=== PATIENT | male | born 1980 | race Caucasian/White ===

== ENCOUNTER 2021-01-14 19:09 | Inpatient (IN) | payer MEDICARE, MEDICAID ==
[~2021-01-14] VITALS: Ht 152.4 cm; Wt 58.6 kg
[~2021-01-14 19:09] MED LIST: CITA-311 PO; KEP500T PO; LORA0.5T PO; OLAN5TAB5 PO
[2021-01-14 19:52] LABS: BASOPHILS # (AUTO) 0.1 X10'3 (0-0.2); BASOPHILS % (AUTO) 1.1 % (0-1); EOSINOPHILS # (AUTO) 0.2 X10'3 (0-0.9); EOSINOPHILS % (AUTO) 2.2 % (0-6); HEMATOCRIT 48.5 % (42.0-52.0); HEMOGLOBIN 16.4 g/dl (14.0-17.9); LYMPHOCYTES # (AUTO) 1.9 X10'3 (1.1-4.8); MEAN CORPUSCULAR HEMOGLOBIN 31.9 PG (27.0-31.0); MEAN CORPUSCULAR HGB CONC 33.9 g/dL (33.0-36.5); MEAN CORPUSCULAR VOLUME 94.2 FL (78-98); MEAN PLATELET VOLUME 10.5 FL (7.4-10.4); MONOCYTES # (AUTO) 1.2 X10'3 (0-0.9); MONOCYTES % (AUTO) 12.5 % (2-12); NEUTROPHILS # (AUTO) 6.3 X10'3 (1.8-7.7); NEUTROPHILS % (AUTO) 64.2 % (42-75); PLATELET COUNT 234 X10'3 (140-440); RED BLOOD COUNT 5.14 X10'6 (4.70-6.10); RED CELL DISTRIBUTION WIDTH 12.9 % (11.5-14.5); WHITE BLOOD COUNT 9.7 X10'3 (4.5-11.0)
[2021-01-14 20:03] LABS: URINE AMPHETAMINE SCREEN NEGATIVE (Neg); URINE BARBITUATE SCREEN NEGATIVE (Neg); URINE BENZODIAZEPINES SCREEN NEGATIVE (Neg); URINE CANNABINOID SCREEN NEGATIVE (Neg); URINE COCAINE SCREEN NEGATIVE (Neg); URINE METHADONE SCREEN NEGATIVE (Neg); URINE OPIATE SCREEN NEGATIVE (Neg); URINE PHENCYCLIDINE SCREEN NEGATIVE (Neg)
[2021-01-14 20:05] LABS: ALANINE AMINOTRANSFERASE 27 U/L (12-78); ALBUMIN 3.7 G/DL (3.4-5.0); ALKALINE PHOSPHATASE 87 IU/L (46-116); ANION GAP 12 (8-16); ASPARTATE AMINO TRANSFERASE 10 U/L (10-37); BILIRUBIN,TOTAL 0.6 MG/DL (0.1-1.0); BLOOD UREA NITROGEN 13 MG/DL (7-18); BUN/CREATININE RATIO 15.5 (5.4-32.0); CALCIUM 8.8 MG/DL (8.5-10.1); CHLORIDE 108 MMOL/L (99-107); CREATININE 0.84 MG/DL (0.60-1.10); GLUCOSE 117 MG/DL (70-104); POTASSIUM 3.6 MMOL/L (3.5-5.1); SODIUM 143 MMOL/L (135-145); TOTAL CARBON DIOXIDE 23.4 MMOL/L (24-32); TOTAL PROTEIN 7.3 G/DL (6.4-8.2); eGFR > 90 ML/MIN
[2021-01-14] MEDS ORDERED: PALI1.5T PO (20:24)
[2021-01-14] MEDS ORDERED: PALI6TAB6 PO (20:26)
[2021-01-14 20:35] LABS: CLARITY,URINE CLEAR (Clear); COLOR,URINE YELLOW (Yellow); GLUCOSE, URINE NEGATIVE (Neg); KETONES,URINE NEGATIVE (Neg); LEUKOCYTE ESTERASE ,URINE NEGATIVE (Neg); NITRITES, URINE NEGATIVE (Neg); OCCULT BLOOD,URINE MODERATE (Neg); PROTEIN,URINE NEGATIVE (Neg)
[2021-01-14 20:40] LABS: UA COLLECTION TYPE CLN CATCH MIDSTREAM
[2021-01-14 20:41] LABS: BACTERIA,URINE NONE SEEN /HPF (Neg); SQUAMOUS EPITHELIAL CELL,UR FEW /LPF (FEW); WBC,URINE 0-4 /HPF (0-4)
[2021-01-14 20:42] LABS: MUCUS STRANDS FEW /LPF (Neg)
--- NOTE | 2021-01-14 23:28 | NUR ---
PT RESTING W/ EYES CLOSED. SHOWS NO S/S OF ACUTE DISTRESS.
--- NOTE | 2021-01-15 01:11 | NUR ---
PT SLEEPING IN SUPINE POSITION. SHOWS NO S/S OF ACUTE DISTRESS.
--- NOTE | 2021-01-15 02:13 | NUR ---
PT DENIES DISCOMFORT, HAS NO REQUESTS. SLEEPING W/O COMPLAINTS
--- NOTE | 2021-01-15 03:06 | NUR ---
PT RESTING IN BED W/ BLANKET. RESPIRATIONS ARE EVEN AND UNLABORED
--- NOTE | 2021-01-15 04:24 | NUR ---
PT SHOWS NO S/S OF DISTRESS, RESTING W/O COMPLAINT
--- NOTE | 2021-01-15 05:57 | NUR ---
PT RESTING W/O COMPLAINTS. RESPIRATIONS EVEN AND UNLABORED
[2021-01-15] MEDS ORDERED: LORazepam 0.5 MG tablet PO PRN (06:20)
--- NOTE | 2021-01-15 06:54 | NUR ---
patient moved to bed 21.
[2021-01-15] MEDS: levetiracetam 250mg tablet PO SCH ×2 (08:15→21:06)
--- NOTE | 2021-01-15 09:28 | NUR ---
Still reports he wants to walk on the street in front of cars, denies HI. Repors hx of OD, nomreported visual or auditory hallunication. Reports he doesn't have family or friends in [place] and that he used to live in [place].Still waiting for [facility] mental health to eval patient.
--- NOTE | 2021-01-15 11:37 | NUR ---
patient on right bustillo position, respirations regular.
--- NOTE | 2021-01-15 14:00 | NUR ---
[facility] SW at bedside.
--- NOTE | 2021-01-15 15:18 | NUR ---
Assumed care of patient, pt. continues to sleep at this time, laying on left side.
--- NOTE | 2021-01-15 16:38 | NUR ---
Pt. continues to sleep at this time, laying on his left side, rr even and unlabored.
--- NOTE | 2021-01-15 17:26 | NUR ---
Pt. continues to sleep, laying on his rt. side at this time, rr even and unlabored.
[2021-01-15] MEDS: lactose-reduced food (Ensure High Protein) 237ml bottle PO SCH (18:09)
--- NOTE | 2021-01-15 19:00 | NUR ---
Received pt laying in bed, awake. Pt cooperative with product development engineer.
--- NOTE | 2021-01-15 21:00 | NUR ---
Pt laying awake in bed talking on the phone with a friend. Pt up to bathroom x 1.
[2021-01-15] MEDS: PALIPERIDONE 3 MG TAB.ER.24 PO SCH (21:05)
--- NOTE | 2021-01-15 23:00 | NUR ---
Pt asleep by 2200. Pt lying peacefully without signs of distress.
--- NOTE | 2021-01-16 01:00 | NUR ---
Pt continues sleeping without signs of distress.
--- NOTE | 2021-01-16 03:00 | NUR ---
Pt remains asleep without signs of distress.
--- NOTE | 2021-01-16 05:00 | NUR ---
Pt up to the bathroom, then returned to bed without complaints.
--- NOTE | 2021-01-16 07:54 | NUR ---
Pt sleeping, resp unlabored
[2021-01-16] MEDS: levetiracetam 250mg tablet PO SCH ×2 (08:05→20:25)
[2021-01-16] MEDS: lactose-reduced food (Ensure High Protein) 237ml bottle PO SCH ×3 (08:06→18:00)
--- NOTE | 2021-01-16 10:52 | NUR ---
Pt up to bathroom with walker. Back to bed
--- NOTE | 2021-01-16 13:46 | NUR ---
Pt ate lunch,. Talked to family on the phone, back to sleep
--- NOTE | 2021-01-16 17:06 | NUR ---
Pt family called, pt talking on the phone with them
--- NOTE | 2021-01-16 18:47 | NUR ---
Patient is awake and well oriented. He is finishing dinner. No distress.
--- NOTE | 2021-01-16 19:47 | NUR ---
Patient describes S/I without a plan. Patient is polite and cooperative. Patient describes recent problems with sleep. This mortgage or loan underwriter will request a Trasadone order for patient.
[2021-01-16] MEDS: PALIPERIDONE 3 MG TAB.ER.24 PO SCH (20:25)
[2021-01-16] MEDS ORDERED: traZODone 50mg tablet PO SCH (20:55)
[2021-01-16] MEDS ORDERED: traZODone 50mg tablet PO PRN (21:01)
--- NOTE | 2021-01-16 21:13 | NUR ---
Patient sleeping quietly in bed. In view from the nurses station.
--- NOTE | 2021-01-16 22:03 | NUR ---
Patient sleeps quietly in a mid fowlers position.
--- NOTE | 2021-01-17 01:02 | NUR ---
Patients bed is in low fowlers position, he is sleeping on his right side. No distress.
--- NOTE | 2021-01-17 04:09 | NUR ---
Patient is sleeping quietly on his left side. No S/S of any distress. Patient self re-positions in bed.
--- NOTE | 2021-01-17 06:54 | NUR ---
Assumed care of patient. Appears to be sleeping, respirations even and unlabored.
[2021-01-17] MEDS: lactose-reduced food (Ensure High Protein) 237ml bottle PO SCH ×3 (08:19→18:12)
[2021-01-17] MEDS: levetiracetam 250mg tablet PO SCH ×2 (08:22→20:15)
--- NOTE | 2021-01-17 08:55 | NUR ---
Pt awake sitting on side bed finishing his breakfast. Pt was compliant with medications and 1:1 assessment. Pt answers questions minimally. Pt states "I am depressed." When asked about suicidal thoughts pt states "I don't know." "I am depressed." Pt endorses A/VH, but "not all the time." Pt had a urinal next to bed and when asked if he could use the bathroom pt stated "the door is to heavy and I might fall." Virologist explained that staff would assist him and encouraged him to ambulate. Addendum: 01/17/21 at 1017 by KELLY Pt reports one SA by overdosing with pills, unsure of how long ago. Pt states he recently moved back to [place] from [place], has no support system here.
--- NOTE | 2021-01-17 10:59 | NUR ---
Pt appears to be sleeping, respirations even and unlabored.
--- NOTE | 2021-01-17 12:09 | NUR ---
Pt on phone with a friend talking appropriately.
--- NOTE | 2021-01-17 13:15 | NUR ---
Pt was discharged to [facility] at 1310. Pt was escorted to unit by PCT and security. Pt left with all personal belongings and original 5150 was given to staff. Pt was happy about going "upstairs." Pt was A&Ox4.
--- NOTE | 2021-01-17 13:15 | NUR ---
ADMIT NOTE: Pt admitted from [facility] on a 5150 DTS. Per pt report he is from [place]. In [place] he lived with his adoptive family. Pt states, "they don't want me to live there anymore." He told this teletypewriter installer, "I was driven by a friend to [place] and dropped off." He talked about having lived in motels and now at the [facility]. He states, "I am scared living there they take my belongings and have tried to take my EBT card." Pt is developmentally delayed. He reported SI and plans "when I feel scared at the mission." Belongings inventoried and put in a locker per STEVEN Elizabeth. He is a non-smoker. tPt reports seizures and is on Keppra
[2021-01-17] MEDS ORDERED: loperamide 2mg capsule PO PRN (13:25)
[2021-01-17] MEDS ORDERED: mag hydrox/Alum hydrox/simeth 30ml oral suspension PO PRN (13:25)
[2021-01-17] MEDS ORDERED: NICOTINE POLACRILEX 2 MG LOZENGE BC PRN (13:25)
[2021-01-17] MEDS ORDERED: acetaminophen 325mg tablet PO PRN (13:25)
[2021-01-17] MEDS ORDERED: magnesium hydroxide 30ml (MOM) UD suspension PO PRN (13:25)
[2021-01-17] MEDS: acetaminophen 325mg tablet PO PRN (18:22)
[2021-01-17 19:12] VITALS: BP 118/73
[2021-01-17] MEDS: PALIPERIDONE 3 MG TAB.ER.24 PO SCH (20:14)
[2021-01-17] MEDS: traZODone 50mg tablet PO SCH (20:15)
--- NOTE | 2021-01-18 00:36 | NUR ---
Nursing Progress Note:[] Legal hold:[] Client on voluntary/involuntary status for GD/DTS/DTO[]. Report received from nurse with use of SBAR[]. Why are they here: Pt [facility] on a 5150 DTS. Per pt report he is from [place]. In [place] he lived with his adoptive family. Pt states, "they don't want me to live there anymore." He told this telegraphic typewriter operator, "I was driven by a friend to [place] and dropped off." He talked about having lived in motels and now at the [facility]. He states, "I am scared living there they take my belongings and have tried to take my EBT card." Pt is developmentally delayed. He reported SI and plans "when I feel scared at the mission." Belongings inventoried and put in a locker per STEVEN Elizabeth. He is a non-smoker. Pt reports seizures and is on Kera Assessment What has happened this shift: Patient was up on the unit walking and hanging around his room. Pt was concerned about his room mate responding to internal stimuli loudly. Pt was reminded that he is safe on the unit. Pt ate snack in group room with some peers and watched tv. He was med compliant He went to bed after reading the Bible with a peer. S/I, H/I:denies except when scared about living situation. A/VH: denies Sleep:See sleep assessment ADL's:independent Group attendance:none Were meds taken:yes Any med S/E none Mental Status Exam Appearance:dressed in green scrubs Eye contact:good Behavior: Cooperative Speech: Audible slow to respond Mood: Guarded Affect: Blunted Thought process: Poverty of speech and content Thought Content: worried about room mate Cognition: A&O X3 Insight: Fair Judgment: Fair Interventions PRN's used: Trazodone Therapeutic interventions: Provided 1:1 assessment with therapeutic communication; medication administration/education/monitoring, provided direction and encouragement as needed, encouraged participation on the unit, and maintained Q 15min safety checks. Restraints/seclusion/emergency medication: N/A Justification of Continued Inpatient Treatment: Requires a safe and supportive environment.
[2021-01-18] MEDS: levetiracetam 250mg tablet PO SCH ×2 (07:33→20:10)
[2021-01-18] MEDS ORDERED: nicotine 21mg patch - 24 hr TD SCH (08:00)
[2021-01-18 08:14] VITALS: BP 111/61
[2021-01-18] MEDS: lactose-reduced food (Ensure High Protein) 237ml bottle PO SCH ×3 (08:16→17:53)
[2021-01-18 08:50] LABS: CHOL/HDL RATIO 4.8 (0.00-4.99); CHOLESTEROL 163 MG/DL (0-200); HDL CHOLESTEROL 34 MG/DL (35-60); LDL CHOLESTEROL 109 MG/DL (50-100); TRIGLYCERIDES 94 MG/DL (20-135)
[2021-01-18 08:52] LABS: HEMOGLOBIN A1C 5.2 % (4.5-6.2)
--- NOTE | 2021-01-18 14:13 | NUR ---
Nursing Progress Note: ALYSHA Legal hold: 5150 Expires 01/20 @ 3951. Client on voluntary/involuntary status for DTS. Report received from KAYCEE Emmanuel, with use of SBAR. Why are they here: Pt admitted from [facility] on a 5150 DTS. Per pt report he is from [place]. In [place] he lived with his adoptive family. Pt states, "they don't want me to live there anymore." He told this fiction and nonfiction writer prose, "I was driven by a friend to [place] and dropped off." He talked about having lived in motels and now at the [facility]. He states, "I am scared living there they take my belongings and have tried to take my EBT card." Pt is developmentally delayed. He reported SI and plans "when I feel scared at the mission." Assessment What has happened this shift: Received awake at shift change sitting in community room. Pt and another peer were reading the Bible together. Pt appeared a little sleepy, stated I slept okay. Pt has a difficult time making eye contact. Pt was cooperative with care and medications. Pt ate his breakfast then returned to this room to sleep. Pt denies suicidal thoughts. When asked what his plans are when he is discharged pt said If they send me back to the assisted I will just come back to [facility]. I told the doctor that. Pt states he gets scared when he is at the assisted. Pt told fiction and nonfiction writer prose he came from [facility] and came back to [place] because I didnt like it there. Pt stated he didnt like the food here I dont have any teeth. Pts diet was changed to mechanical soft. If I dont like it I wont eat it, I am picky. Pt has Ensure x3 meals ordered. Pt states he drinks four bottles of Ensure a day when not admitted. Pt has a difficult time putting his thoughts together at times. Pt says I dont know to many questions and requires prompting. Pt came to fiction and nonfiction writer prose after lunch and stated I threw up. Pt said I think its the food. After further assessment pt told fiction and nonfiction writer prose I dont feel safe in my room because of people. Pt was encouraged to sit in the community room, but pt states he is tired. Administered PRN 0.5 mg Ativan with effect. Spoke with CRN and about a room change. (Pts roommate can be loud when responding to internal stimuli. S/I, H/I: Denies, except when he is scared. A/VH: Denies both. Sleep: 6.5 hours per sleep assessment. ADL's: Independent with walker. Group attendance: No scheduled group. Were meds taken: Yes, without issue. Any med S/E: None noted or reported. Mental Status Exam Appearance: Slightly disheveled, pt has no teeth. Dressed in green unit scrubs Eye contact: Poor/fair. Behavior: Cooperative, difficult time making eye contact, somewhat guarded. Speech: Audible slow to respond Mood: Guarded Affect: Blunted Thought process: Poverty of speech and content Thought Content: Im not going back to the assisted. Cognition: A&O X3 Insight: Fair Judgment: Fair Interventions PRN's used: Ativan 0.5mg Therapeutic interventions: Provided 1:1 assessment with therapeutic communication, reassured pt he was safe, medication administration/education/monitoring, provided direction and encouragement as needed, encouraged participation on the unit, and maintained Q 15min safety checks. Restraints/seclusion/emergency medication: N/A Justification of Continued Inpatient Treatment: Requires a safe and supportive environment.
[2021-01-18 19:45] VITALS: BP 124/56
[2021-01-18] MEDS: traZODone 50mg tablet PO SCH (20:10)
[2021-01-18] MEDS: PALIPERIDONE 3 MG TAB.ER.24 PO SCH (20:10)
--- NOTE | 2021-01-19 00:50 | NUR ---
Nursing Progress Note: ALYSHA Legal hold: 5150 Expires 01/20 @ 0475. Client on voluntary/involuntary status for DTS. Report received from KAYCEE Rivera, with use of SBAR. Why are they here: Pt admitted from [facility] on a 5150 DTS. Per pt report he is from [place]. In [place] he lived with his adoptive family. Pt states, "they don't want me to live there anymore." He told this lyric writer, "I was driven by a friend to [place] and dropped off." He talked about having lived [facility] motels [facility] He states, "I am scared living there they take my belongings and have tried to take my EBT card." Pt is developmentally delayed. He reported SI and plans "when I feel scared at the mission." Assessment What has happened this shift: Received patient awake at shift change in the patel way complaining about his dinner. Pt has a difficult time making eye contact. Pt was cooperative with care and medications. Pt ate his snack in the group room. then watched tv with peers. Pt denies suicidal thoughts and hallucinations. S/I, H/I: Denies, except when he is scared. A/VH: Denies both. Sleep: see sleep assessment. ADL's: Independent with walker. Group attendance: No scheduled group. Were meds taken: Yes, without issue. Any med S/E: None noted or reported. Mental Status Exam Appearance: Slightly disheveled, pt has no teeth. Dressed in green unit scrubs Eye contact: Poor/fair. Behavior: Cooperative, difficult time making eye contact, somewhat guarded. Speech: Audible slow to respond Mood: Guarded Affect: Blunted Thought process: Poverty of speech and content Thought Content: Im not going back to the intermediate. Cognition: A&O X3 Insight: Fair Judgment: Fair Interventions PRN's used: Therapeutic interventions: Provided 1:1 assessment with therapeutic communication, reassured pt he was safe, medication administration/education/monitoring, provided direction and encouragement as needed, encouraged participation on the unit, and maintained Q 15min safety checks. Restraints/seclusion/emergency medication: N/A Justification of Continued Inpatient Treatment: Requires a safe and supportive environment.
[2021-01-19] MEDS: levetiracetam 250mg tablet PO SCH ×2 (07:32→20:15)
[2021-01-19 08:00] VITALS: BP 106/62
[2021-01-19] MEDS: lactose-reduced food (Ensure High Protein) 237ml bottle PO SCH ×3 (08:00→17:59)
--- NOTE | 2021-01-19 16:50 | NUR ---
Nursing Progress Note: Legal hold: 5150 Expires 01/20 @ 5045. Client on voluntary/involuntary status for DTS. Report received from KAYCEE Nettles, with use of SBAR. Why are they here: Pt admitted from [facility] on a 5150 DTS. Per pt report he is from [place]. In [place] he lived with his adoptive family. Pt states, "they don't want me to live there anymore." He told this comic writer, "I was driven by a friend to [place] and dropped off." He talked about having lived in motels and now at the [facility]. He states, "I am scared living there they take my belongings and have tried to take my EBT card." Pt is developmentally delayed. He reported SI and plans "when I feel scared at the mission." Assessment What has happened this shift: Patient resting quietly in bed at start of shift. States he did not sleep well because he cant sleep lying flat. Patient requesting hospital bed instead of mental health safety bed. Later complains that he keeps falling out of bed and needs a bed with rails. Continues to perseverate over wanting to change to a hospital bed but one is not available at this time. S/I, H/I: Denies, except when he is scared. A/VH: Denies both. Sleep: 6.75hrs per NOC ADL's: Independent with walker. Group attendance: Yes Were meds taken: Yes Any med S/E: None noted or reported. Mental Status Exam Appearance: Slightly disheveled, pt has no teeth. Dressed in green unit scrubs Eye contact: Poor Behavior: Cooperative, difficult time making eye contact, somewhat guarded. Speech: Audible slow to respond Mood: Guarded Affect: Blunted Thought process: Poverty of speech and content Thought Content: Wanting to know about staying voluntarily after his hold is up. Cognition: A&O X3 Insight: Fair Judgment: Fair Interventions PRN's used: Therapeutic interventions: Provided 1:1 assessment with therapeutic communication, reassured pt he was safe, medication administration/education/monitoring, provided direction and encouragement as needed, encouraged participation on the unit, and maintained Q 15min safety checks. Restraints/seclusion/emergency medication: N/A Justification of Continued Inpatient Treatment: Requires a safe and supportive environment.
[2021-01-19] MEDS: PALIPERIDONE 3 MG TAB.ER.24 PO SCH (20:14)
[2021-01-19] MEDS: traZODone 50mg tablet PO SCH (20:15)
[2021-01-19 20:48] VITALS: BP 133/75
--- NOTE | 2021-01-20 00:54 | NUR ---
Nursing Progress Note: Legal hold: 5150 Expires 01/20 @ 0925. Client on voluntary/involuntary status for DTS. Report received from KAYCEE Oliva, with use of SBAR. Why are they here: Pt admitted from [facility] on a 5150 DTS. Per pt report he is from [place]. In [place] he lived with his adoptive family. Pt states, "they don't want me to live there anymore." He told this residential mortgage underwriter, "I was driven by a friend to [place] and dropped off." He talked about having lived in motels and now at the [facility]. He states, "I am scared living there they take my belongings and have tried to take my EBT card." Pt is developmentally delayed. He reported SI and plans "when I feel scared at the mission." Assessment What has happened this shift: Patient up and pacing the patel at start of shift. Pt room was change to 327B for the medical bed. Pt has seizure disorder and claims he a has som out of bed. Pt ate snack in group room with a peer watching tv. He was med compliant and cooperative this shift. S/I, H/I: Denies, except when he is scared. A/VH: Denies both. Sleep: 6.75hrs per NOC ADL's: Independent with walker. Group attendance: Yes Were meds taken: Yes Any med S/E: None noted or reported. Mental Status Exam Appearance: Slightly disheveled, pt has no teeth. Dressed in green unit scrubs Eye contact: Poor Behavior: Cooperative, difficult time making eye contact, somewhat guarded. Speech: Audible slow to respond Mood: Guarded Affect: Blunted Thought process: Poverty of speech and content Thought Content: Wanting to know about staying voluntarily after his hold is up. Cognition: A&O X3 Insight: Fair Judgment: Fair Interventions PRN's used: Therapeutic interventions: Provided 1:1 assessment with therapeutic communication, reassured pt he was safe, medication administration/education/monitoring, provided direction and encouragement as needed, encouraged participation on the unit, and maintained Q 15min safety checks. Restraints/seclusion/emergency medication: N/A Justification of Continued Inpatient Treatment: Requires a safe and supportive environment.
[2021-01-20] MEDS: levetiracetam 250mg tablet PO SCH ×2 (07:30→20:38)
[2021-01-20 08:00] VITALS: BP 105/48
[2021-01-20] MEDS: lactose-reduced food (Ensure High Protein) 237ml bottle PO SCH ×3 (08:00→18:16)
[2021-01-20] MEDS: acetaminophen 325mg tablet PO PRN (12:08)
--- NOTE | 2021-01-20 17:23 | NUR ---
Nursing Progress Note: VOLUNTARY Client on voluntary/involuntary status for DTS. Report received from KAYCEE Nettles, with use of SBAR. Why are they here: [facility]. Per pt report he is from [place]. In [place] he lived with his adoptive family. Pt states, "they don't want me to live there anymore." He told this account underwriter, "I was driven by a friend to [place] and dropped off." He talked about having lived in motels and now at the [facility]. He states, "I am scared living there they take my belongings and have tried to take my EBT card." Pt is developmentally delayed. He reported SI and plans "when I feel scared at the mission." Assessment What has happened this shift: RN received pt. asleep in bed. Pt. awake and pacing halls with his walker. Pt. took medications and reports not feeling well, c/o of headache and sore throat. Pt. is afebrile. Pt. given Tylenol 650mg po for headache with good effect. Pt. ate all meals in his room. RN received order for COVID test which resulted negative. 1:1 done at bedside, pt. reports he is voluntary now, when asked about what he is hoping in regards to his future, pt. states, I dont know. Pt. gives minimal information during 1:1. Pt. asking if he can watch cartoons in his room and pt. informed there are only TVs in the public rooms. S/I, H/I: Denies A/VH: Denies Sleep: Pt. slept 6.75 hrs on NOC shift and napped intermittently during the day. ADL's: Independent with walker. Group attendance: No Were meds taken: Yes Any med S/E: Denies Mental Status Exam Appearance: Disheveled, unshaven, wearing green unit scrubs. Eye contact: WNL Behavior: Cooperative, isolating to room due to malaise. Speech: WNL Mood: Depressed Affect: Blunted Thought process: Linear Thought Content: Circumstantial. Cognition: A&O X3 Insight: Fair Judgment: Fair Interventions PRN's used: Tylenol 650mg x1 Therapeutic interventions: Provided 1:1 assessment with therapeutic communication, reassured pt he was safe, medication administration/education/monitoring, provided direction and encouragement as needed, encouraged participation on the unit, and maintained Q 15min safety checks. Restraints/seclusion/emergency medication: N/A Justification of Continued Inpatient Treatment: Requires a safe and supportive environment.
[2021-01-20 19:00] VITALS: BP 114/66
[2021-01-20] MEDS: PALIPERIDONE 3 MG TAB.ER.24 PO SCH (20:38)
[2021-01-20] MEDS: traZODone 50mg tablet PO SCH (20:38)
--- NOTE | 2021-01-20 21:37 | NUR ---
Nursing Progress Note: Legal hold: 5150 Expires 01/20 @ 1315. Client on voluntary/involuntary status for DTS. Report received from KAYCEE Oliva, with use of SBAR. Why are they here: Pt admitted from [facility] on a 5150 DTS. Per pt report he is from [place]. In [place] he lived with his adoptive family. Pt states, "they don't want me to live there anymore." He told this health science writer, "I was driven by a friend to [place] and dropped off." He talked about having lived in motels and now at the [facility]. He states, "I am scared living there they take my belongings and have tried to take my EBT card." Pt is developmentally delayed. He reported SI and plans "when I feel scared at the mission." Assessment What has happened this shift: Patient walked up and down hallways and did some drawing in the activates room. Patient is very quiet and reserved but will give eye contact and respond when questioned. Patient did little to no socializing and didn't participate in snack time. Patient took all medications without issue. Patient had no difficulty sleeping S/I, H/I: Denies A/VH: Denies both. Sleep: ADL's: Independent with walker. Group attendance: Yes Were meds taken: Yes Any med S/E: None noted or reported. Mental Status Exam Appearance: Slightly disheveled, pt has no teeth. Dressed in green unit scrubs Eye contact: Poor Behavior: Cooperative, difficult time making eye contact, somewhat guarded. Speech: Audible slow to respond Mood: Guarded Affect: Blunted Thought process: Poverty of speech and content Thought Content: Wanting to know about staying voluntarily after his hold is up. Cognition: A&O X3 Insight: Fair Judgment: Fair Interventions PRN's used: none Therapeutic interventions: Provided 1:1 assessment with therapeutic communication, reassured pt he was safe, medication administration/education/monitoring, provided direction and encouragement as needed, encouraged participation on the unit, and maintained Q 15min safety checks. Restraints/seclusion/emergency medication: N/A Justification of Continued Inpatient Treatment: Requires a safe and supportive environment.
[2021-01-21 07:26] VITALS: BP 104/61
[2021-01-21] MEDS: lactose-reduced food (Ensure High Protein) 237ml bottle PO SCH ×4 (08:58→20:16)
[2021-01-21] MEDS: levetiracetam 250mg tablet PO SCH ×2 (09:05→20:13)
--- NOTE | 2021-01-21 13:52 | NUR ---
Initial: Pt admitted w/ SI per EMR. Pt able to eat well, mostly 100% of meals on Regular/MM5 diet and 100% of ONS TID meeting needs. LBM 01/20. No nutritional intervention implemented at this time, will continue to monitor. Recs: 1. Continue Regular/MM5 diet as tolerated 2. Ensure High protein TID 3. Bowel care per rx 4. Weekly wts Addendum: 01/21/21 at [address] Amended: Links added.
--- NOTE | 2021-01-21 14:13 | NUR ---
Pt. attended group today. We talking about developing coping skills. We mostly talked about grounding and this Associate Financial Analyst lead different grounding/Mindfulness exercises such as 789 breathing techniques, 23773 grounding technique, and scaling emotional pain levels. Pts left with a repertoire of ideas for coping skills they can work on and practice. Pt was pleasant to work with and compliant. He didn't share much in the group and when he did his thought content contained delusional content. His mood was good with a full range of affect. The things he shared were not on topic but random things such as letting us know there are ghosts in the building etc. He did attempt the activities and seemed to enjoy being in the group and socializing with his peers. Anastasiia Moody, DOOR FRAMER
--- NOTE | 2021-01-21 17:02 | NUR ---
Nursing Progress Note: Legal hold: Voluntary Client on voluntary DTS Report received from nurse with use of SBAR: DIANA Nettles Why are they here: Pt admitted from [facility] on a 5150 DTS. Per pt report he is from [place]. In [place] he lived with his adoptive family. Pt states, "they don't want me to live there anymore." He told this video games storywriter, "I was driven by a friend to [place] and dropped off." He talked about having lived in motels and now at the [place]. He states, "I am scared living there they take my belongings and have tried to take my EBT card." Pt is developmentally delayed. He reported SI and plans "when I feel scared at the mission." Assessment What has happened this shift: Received pt. sleeping in bed at the beginning of the shift, he was awoken by staff and required some encouragement in order to attend breakfast in the Group Room. Pt. had seizure pads placed on his bed r/t a chronic seizure disorder. He is able to ambulate independently with use of FWW, however requires some encouragement in order to complete ADLs. 1:1 completed later at bedside, pt. denies any S/I, H/I, A/V/SINGH, and no delusional statements made. However, pt. does report previous A/V/SINGH and paranoid thoughts and states, "Not since I moved rooms." He does not elaborate when further questioned by this video games storywriter, but admits he felt unsafe in his previous room. Pt's thought process is somewhat tangental, and he then switches to talking about somatic complaints including a cough (pt. has not been observed to be coughing this shift) and hard stools. MOM administered, will continue to monitor. He also reported he continues to throw up after meals, however this was reported to Dr. Solano who indicates this is a chronic issue for pt. Will maintain a mechanical soft diet at this time, no new orders obtained. Per Dr. Solano, a physical therapy consult has been placed regarding pt's need for a new FWW r/t generalized weakness due to his seizure D/O. Also, an extra Ensure has been ordered to be given with snacks. S/I, H/I: Denies A/VH: Denies, pt. does not appear to be internally preoccupied Sleep: Sleep hours are 8.25 ADL's: Pt. has generalized weakness and walks independently with FWW, he requires some encouragement with ADSl Group attendance: Yes Were meds taken: Yes Any med S/E: None Mental Status Exam Appearance: Somewhat disheveled, however appropriately dressed Eye contact: Good Behavior: Cooperative, restless, and withdrawn Speech: Soft, minimal responses Mood: Restless Affect: Blunted with animation Thought process: Somewhat tangental Thought Content: Some perseveration on somatic complaints Cognition: A&O X2 Insight: Poor Judgment: Poor Interventions PRN's used: MOM Therapeutic interventions: Introduced self and established rapport, maintained a safe and supportive environment, ensured contract for safety, provided clear and simple instructions, monitored behaviors and provided intervention as necessary, encouraged participation on the unit, maintained fall precautions, and maintained Q 15min safety checks. Restraints/seclusion/emergency medication: N/A Justification of Continued Inpatient Treatment: Per. Dr. Solano, pt. continues to require a safe and supportive environment while awaiting discharge.
[2021-01-21 19:00] VITALS: BP 126/75
[2021-01-21] MEDS: PALIPERIDONE 3 MG TAB.ER.24 PO SCH (20:13)
[2021-01-21] MEDS: traZODone 50mg tablet PO SCH (20:13)
--- NOTE | 2021-01-22 02:13 | NUR ---
Nursing Progress Note: Legal hold: Voluntary Report received from Pj ORTIZ with use of SBAR Why are they here: Pt admitted from [facility] on a 5150 DTS. Per pt report he is from [place]. In [place] he lived with his adoptive family. Pt states, "they don't want me to live there anymore." He told this program writer, "I was driven by a friend to [place] and dropped off." He talked about having lived in [facility] and now at the [facility]. He states, "I am scared living there they take my belongings and have tried to take my EBT card." Pt is developmentally delayed. He reported SI and plans "when I feel scared at the mission." Assessment What has happened this shift: The patient was periodically up on the unit and frequently up at the station telling anyone who was there his concerns about a male peer possibly hurting him. He stataed "I feel shannan scared. He tried to hurt me. He is making threats to hurt me" He denied voices. He denies suicidal thinking. He denies thoughts to harm others. He has not showered per his report for several days because is is afraid of falling in the shower. He also had to be reassured before going to bed because he was convinced that the same peer was going to harm him. He stated that he was living in [facility] but decide to move back to [facility] where he felt he had friends. He stated that he was living at the [facility]. He stated, "The doctor says he's going to keel me here until they find me another place. If I go back to to [facility] I will end right back in the hospital" He is medication compliant and he denied having medication side effects. His insight and judgement are impaired. He is a [facility] client but stated he currently is not connected to services. Justification of Continued Inpatient Treatment: Medication stabilization continues. Discharge planning being done as the patient is convinced he will be taken advantage at the [facility].
[2021-01-22] MEDS: lactose-reduced food (Ensure High Protein) 237ml bottle PO SCH ×4 (08:00→21:00)
[2021-01-22 08:39] VITALS: BP 109/66
[2021-01-22] MEDS: levetiracetam 250mg tablet PO SCH ×2 (08:55→20:00)
--- NOTE | 2021-01-22 17:31 | NUR ---
Nursing Progress Note: Jaxon Legal hold: 5250 served today 01/22/21 Client on voluntary GD Report received from nurse with use of SBAR: Macy Joaquin RN Why are they here: Pt admitted from [facility] on a 5150 DTS. Per pt report he is from [place]. In [place] he lived with his adoptive family. Pt states, "they don't want me to live there anymore." He told this junior underwriter, "I was driven by a friend to [place] and dropped off." He talked about having lived in motels and now at the [place]. He states, "I am scared living there they take my belongings and have tried to take my EBT card." Pt is developmentally delayed. He reported SI and plans "when I feel scared at the mission." Assessment What has happened this shift: Received pt. sleeping in bed at the beginning of the shift, he was awoken by staff and required some encouragement in order to attend breakfast in the Group Room. Pt. had seizure pads placed on his bed r/t a chronic seizure disorder. He is able to ambulate independently with use of FWW, however requires some encouragement in order to complete ADLs. 1:1 completed later at bedside, pt. denies any S/I, H/I, A/V/SINGH, and no delusional statements made. Pt's thought process is somewhat tangental, and he then switches to talking about somatic complaints including he continues to throw up after meals, however this was reported to Dr. Solano who indicates this is a chronic issue for pt. Will maintain a mechanical soft diet at this time, patient is also insistence on getting 4 ensures a day. Patient stated he drinks ensure when he is not here, her orders them from [employer] with his EBT card, because he does not live close to a store, this way it is delivered. (This has not been verified) Per Dr. Solano, a physical therapy consult has been placed regarding pt's need for a new FWW , this has not happened yet. Patients main concern is that his breaks dont work on his current walker. This junior underwriter overheard patient talking to another staff member in regards how he got to [facility] and where he was prior to coming to [facility]. Patient stated that he came to [place] to be closer to friend, patient is in the process of changing his payee to [place]. S/I, H/I: Denies A/VH: Denies, pt. does not appear to be internally preoccupied Sleep: No naps on day shift ADL's: Pt. has generalized weakness and walks independently with FWW, he requires some encouragement with ADL, no shower this shift, although he talks about getting a shower often Group attendance: Yes Were meds taken: Yes Any med S/E: None Mental Status Exam Appearance: Somewhat disheveled, however appropriately dressed Eye contact: Good Behavior: Cooperative, restless, and withdrawn Speech: Soft, minimal responses Mood: Restless Affect: Blunted with animation Thought process: Somewhat tangental Thought Content: Some perseveration on somatic complaints Cognition: A&O X2 Insight: Poor Judgment: Poor Interventions PRN's used: Therapeutic interventions: Introduced self and established rapport, maintained a safe and supportive environment, ensured contract for safety, provided clear and simple instructions, monitored behaviors and provided intervention as necessary, encouraged participation on the unit, maintained fall precautions, and maintained Q 15min safety checks. Restraints/seclusion/emergency medication: N/A Justification of Continued Inpatient Treatment: Per Dr Solano patient is GD, if patient was to discharge today patient would be at risk for re-admission. Although patient states he will go to the [facility] that is the same discharge plan that landed him on a MH hold. Patient needs more time on medication to ensure a safe discharge.
[2021-01-22] MEDS: traZODone 50mg tablet PO SCH (20:00)
[2021-01-22] MEDS: PALIPERIDONE 3 MG TAB.ER.24 PO SCH (21:33)
--- NOTE | 2021-01-23 02:24 | NUR ---
Nursing Progress Note: Legal hold: 5250 served 01/22/21 Client on voluntary GD Report received from nurse with use of SBAR: Nilson RN Why are they here: Pt admitted from [facility] on a 5150 DTS. Per pt report he is from [place]. In [place] he lived with his adoptive family. Pt states, "they don't want me to live there anymore." He told this selling underwriter, "I was driven by a friend to [place] and dropped off." He talked about having lived in motels and now at the [facility]. He states, "I am scared living there they take my belongings and have tried to take my EBT card." Pt is developmentally delayed. He reported SI and plans "when I feel scared at the mission." Assessment What has happened this shift: Pt pacing in halls at start of shift. He uses a FWW but much of the time he pushes the walker in front of him with one hand while talking on the phone. He does not appear to be supporting any of his weight on the walker. He refused VS and said he was not going to take any of his meds because he is angry about 5250 hold placed on him. Pt allowed to express all his c/o about the staying here. Pt's thought process is somewhat tangential. His main complaint was about the food here. Provided with a snack. He asked questions about the hearing on Monday. Per pt he has called the pt advocate and she will be at the hearing. Pt calmed down and became more cooperative took his HS meds without further c/o. S/I, H/I: Denies A/VH: Denies, pt. does not appear to be internally preoccupied Sleep: Asleep at this time ADL's: Pt. has generalized weakness and walks independently with FWW, he requires some encouragement with ADL, no shower this shift, although he talks about getting a shower often Group attendance: NA Were meds taken: Yes Any med S/E: None Mental Status Exam Appearance: Somewhat disheveled, however appropriately dressed Eye contact: Good Behavior: Angry at start of shift. Became Cooperative Speech: Soft, minimal responses Mood: Restless Affect: Blunted with animation Thought process: Somewhat tangential Thought Content: 5250 hold and upcoming hearing Cognition: A&O X2 Insight: Poor Judgment: Poor Interventions PRN's used: Therapeutic interventions: Introduced self and established rapport, maintained a safe and supportive environment, ensured contract for safety, provided clear and simple instructions, monitored behaviors and provided intervention as necessary, encouraged participation on the unit, maintained fall precautions, and maintained Q 15min safety checks. Restraints/seclusion/emergency medication: N/A Justification of Continued Inpatient Treatment: Per Dr Solano patient is GD, if patient was to discharge today patient would be at risk for re-admission. Although patient states he will go to the [facility] that is the same discharge plan that landed him on a MH hold. Patient needs more time on medication to ensure a safe discharge.
[2021-01-23] MEDS: lactose-reduced food (Ensure High Protein) 237ml bottle PO SCH ×6 (08:31→21:00)
--- NOTE | 2021-01-23 10:51 | NUR ---
This writer editor clarified pt's legal hold with Dr. Solano, who confirms that 5250 hold continues to be legitimate despite pt. previously being voluntary. Also, reported to Dr. Solano that pt. refused his ordered [place] this AM and continues to refuse all care r/t desire to leave. Will continue to monitor.
[2021-01-23] MEDS: levetiracetam 250mg tablet PO SCH ×2 (13:01→20:50)
--- NOTE | 2021-01-23 14:57 | NUR ---
F/u: Noted pt continues on MM5 diet with nectar thick liquids though dietary receiving faxes for thin liquids. Placed TC to [facility] 01/22 and 01/23 with recommendation for diet order change to MM5 with thin liquids as pt reportedly with difficulty chewing r/t having no teeth and with no issues swallowing per RN. Also d/w RN recommendation to discontinue or decrease ONS as pt receiving Ensure High Protein QID and exceeding estimated nutrient needs at this time with combined PO intake of ONS and meals. Addendum: 01/23/21 at [address] Amended: Links added.
--- NOTE | 2021-01-23 17:04 | NUR ---
Nursing Progress Note: Legal hold: 5250 Client on voluntary DTS Report received from nurse with use of SBAR: Macy Joaquin RN Why are they here: Pt admitted from [facility] on a 5150 DTS. Per pt report he is from [place]. In [place] he lived with his adoptive family. Pt states, "they don't want me to live there anymore." He told this feature writer, "I was driven by a friend to [place] and dropped off." He talked about having lived in motels and now at the [place]. He states, "I am scared living there they take my belongings and have tried to take my EBT card." Pt is developmentally delayed. He reported SI and plans "when I feel scared at the mission." Assessment What has happened this shift: Received pt. sleeping in bed at the beginning of the shift, he awoke and immediately began pacing the unit agitatedly with use of his FWW. Pt. approached this feature writer and stated in an agitated way, "I'm not taking my medications today! Pt's rights said I can refuse!" When questioned further by this feature writer, pt. states, "I'm mad at the doctor, he put me on a hold! I'm not going to talk to him anymore!" Pt. then agitatedly walked away, he attended breakfast in the Group Room and continued to pace restlessly throughout the morning. Pt. refused V/S, physical/mental health assessment, and ordered Keppra. He yelled out in the hallway threatening staff, "I'm going to tell Medicare not to pay you guys because you're mistreating me!" He reports he would like to return to the [facility] now and does not want to wait until housing has been found for him. This feature writer clarified pt's hold with Dr. Solano (see previous note). This feature writer continued to provide medication education and encouragement throughout the day, and pt. later consented to taking medication and was able to be redirected. Pt's mood improved during the afternoon, and he had a good meeting with Dr. Solano. He was observed later to up doing puzzles with others in the Group Room. Pt. also showered independently. He does exhibit what appear to be attention-seeking behaviors at times. For example, pt. refused to eat lunch in the Group Room with others, stating, "They are watching football, I hate football!" Will continue to provide redirection as needed and monitor. S/I, H/I: Denies A/VH: Denies, pt. does not appear to be internally preoccupied Sleep: Sleep hours are 8.25 ADL's: Pt. has generalized weakness and walks independently with FWW, he requires some encouragement with ADLs Group attendance: N/A Were meds taken: Pt. initially refused ordered Keppra, however later consented with ongoing education and encouragement Any med S/E: None Mental Status Exam Appearance: Somewhat disheveled, however appropriately dressed Eye contact: Good Behavior: Resistive to care, restless, attention-seeking at times, agitated, guarded, and withdrawn Speech: Guarded, responds to direct questions with minimal responses. Child-like Mood: Restless Affect: Blunted Thought process: Somewhat disorganized Thought Content: Perseveration on desire to discharge Cognition: A&O X2 Insight: Poor Judgment: Poor Interventions PRN's used: None Therapeutic interventions: Maintained a safe and supportive environment, ensured contract for safety, provided clear and simple instructions, provided medication education and encouragement, monitored behaviors and provided intervention as necessary, encouraged participation on the unit, maintained fall precautions, and maintained Q 15min safety checks. Restraints/seclusion/emergency medication: N/A Justification of Continued Inpatient Treatment: Per. Dr. Solano, pt. continues to require a safe and supportive environment. He will discharge to [facility] or [facility] housing.
[2021-01-23 19:35] VITALS: BP 133/65
[2021-01-23] MEDS: traZODone 50mg tablet PO SCH (20:50)
[2021-01-23] MEDS: PALIPERIDONE 3 MG TAB.ER.24 PO SCH (20:50)
--- NOTE | 2021-01-24 02:41 | NUR ---
Nursing Progress Note: Legal hold: 5250 Client on voluntary DTS Report received from nurse with use of SBAR: DIANA Rivera Why are they here: Pt admitted from [facility] on a 5150 DTS. Per pt report he is from [place]. In [place] he lived with his adoptive family. Pt states, "they don't want me to live there anymore." He told this real estate underwriter, "I was driven by a friend to [place] and dropped off." He talked about having lived in motels and now at the [place]. He states, "I am scared living there they take my belongings and have tried to take my EBT card." Pt is developmentally delayed. He reported SI and plans "when I feel scared at the mission." Assessment What has happened this shift: Received pt. ambulating in the hallway with use of his FWW at the beginning of the shift, he greeted this real estate underwriter appropriately and his mood appeared much improved this shift. Pt. was cooperative with all medications, however continues to present with some perseveration regarding obtaining different items (walker and different foods). He goes from one staff member to another asking the same questions, however is able to be redirected. Pt. has orders for a physical therapy evaluation regarding adjustments to be made to his own walker or the possibility of obtaining another walker. Also, a dietary consultation has been ordered regarding pt. edentulous and mechanical soft diet. He reports contentment. 1:1 completed at bedside, pt. denies any S/I, H/I, A/V/SINGH, and no delusional statements made. He continues to present with a somewhat blunted affect and remains guarded with conversation, pt. may be minimizing. Pt. appears to be resting comfortably, and seizure pads in place. S/I, H/I: Denies A/VH: Denies, pt. does not appear to be internally preoccupied Sleep: Pt. receives scheduled Trazodone at , he appears to be sleeping well ADL's: Pt. has generalized weakness and walks independently with FWW Group attendance: N/A Were meds taken: Yes Any med S/E: None Mental Status Exam Appearance: Neat and appropriately dressed Eye contact: Good Behavior: Cooperative and somewhat restless Speech: Guarded, responds to direct questions with minimal responses. Child-like Mood: Restless Affect: Blunted Thought process: Linear Thought Content: Some perseveration regarding obtaining different items (walker and different foods) Cognition: A&O X2 Insight: Poor Judgment: Poor Interventions PRN's used: None Therapeutic interventions: Maintained a safe and supportive environment, ensured contract for safety, provided clear and simple instructions, provided medication education and encouragement, provided active listening and positive encouragement, encouraged participation on the unit, maintained fall precautions, and maintained Q 15min safety checks. Restraints/seclusion/emergency medication: N/A Justification of Continued Inpatient Treatment: Per. Dr. Solano, pt. continues to require a safe and supportive environment. He will discharge to [facility] or [facility] housing.
[2021-01-24 04:10] VITALS: BP 123/72
[2021-01-24] MEDS: acetaminophen 325mg tablet PO PRN (04:10)
--- NOTE | 2021-01-24 04:10 | NUR ---
Pt. slipped and fell in the bathroom while using FWW. He reports he fell on his right side (did not hit his head), and no visible injuries obtained. Pt. is able to move all extremities, and was able to independently get himself up off of the BR floor and push the BR call light after falling. Pt. ambulated independently back to bed where V/S were taken by staff and were WNL. He reports back pain 5/10, PRN Tylenol given. Dr. Wayne notified and no new orders obtained. Given direction to continue to monitor pt. at this time. Pt. was also given a "dinner gorman" to use on his bedside table and was provided education to notify staff by pushing it or call light on bed when needing to transfer. He reported understanding. Pt's bed is low and locked, will endorse to AM shift and continue to monitor.
--- NOTE | 2021-01-24 07:54 | NUR ---
Nutrition consult: re: "pt is a picky eater" addressed in previous RD assessment. Pt consuming mostly 100% of meals on Regular/MM5 diet and 100% of ONS. Will continue to monitor. Addendum: 01/24/21 at [address] Amended: Links added.
[2021-01-24 07:57] VITALS: BP 96/52
[2021-01-24] MEDS: levetiracetam 250mg tablet PO SCH ×2 (07:58→19:59)
[2021-01-24] MEDS: lactose-reduced food (Ensure High Protein) 237ml bottle PO SCH ×4 (08:30→21:19)
--- NOTE | 2021-01-24 16:50 | NUR ---
Nursing Progress Note: Legal hold: 5250 Client on voluntary DTS Report received from nurse with use of SBAR: DIANA Oliva Why are they here: Pt admitted from [facility] on a 5150 DTS. Per pt report he is from [place]. In [place] he lived with his adoptive family. Pt states, "they don't want me to live there anymore." He told this short story writer, "I was driven by a friend to [place] and dropped off." He talked about having lived in motels and now at the [place]. He states, "I am scared living there they take my belongings and have tried to take my EBT card." Pt is developmentally delayed. He reported SI and plans "when I feel scared at the mission." Assessment What has happened this shift: RN received pt. asleep in bed at start of shift. Pt. awoke for breakfast and requested that his breakfast be eaten in his room. When informed he will have to eat in the community room with peers pt. became angry demanding a new nurse. Pt. then became verbally abusive, yelling and swearing at this RN. Pt. needed multiple staff redirecting pt. into his room as his yelling was disturbing the other patients. Pt. eventually calmed down and when this RN attempted to doing 1:1 assessment, pt. refused, stating, go away. At noon pt. approached this RN and apologized for his behavior. Pt. observed pacing in the patel way with walker and socializing with peers. Pt. agreed to eat his lunch in the community room after most of the other patients had left. RN called PT for walker evaluation and PT informed this RN to contact case management. RN left voice message with case management. S/I, H/I: Denies A/VH: Denies Sleep: Pt. slept 5.25 hrs on NOC shift and did not appear to nap on day shift. ADL's: Pt. has generalized weakness and walks independently with FWW Group attendance: N/A Were meds taken: Yes Any med S/E: Denies Mental Status Exam Appearance: disheveled but clean and appropriately dressed Eye contact: WNL Behavior: Angry and uncooperative in the AM, becoming peasant in the afternoon. Speech: WNL Mood: Anxious Affect: Blunted Thought process: Linear, Perseverates Thought Content: Perseverates on food. Cognition: A&O X2 Insight: Poor Judgment: Poor Interventions PRN's used: None Therapeutic interventions: Maintained a safe and supportive environment, ensured contract for safety, provided clear and simple instructions, provided medication education and encouragement, provided active listening and positive encouragement, encouraged participation on the unit, maintained fall precautions, and maintained Q 15min safety checks. Restraints/seclusion/emergency medication: N/A Justification of Continued Inpatient Treatment: Per. Dr. Solano, pt. continues to require a safe and supportive environment. He will discharge to [facility] or [facility] housing.
[2021-01-24 19:20] VITALS: BP 111/66
[2021-01-24] MEDS: traZODone 50mg tablet PO SCH (19:59)
[2021-01-24] MEDS: PALIPERIDONE 3 MG TAB.ER.24 PO SCH (20:00)
--- NOTE | 2021-01-25 02:44 | NUR ---
Nursing Progress Note: Legal hold: 5250 Client on voluntary DTS Report received from nurse with use of SBAR: Nicole RN Why are they here: Pt admitted from [facility] on a 5150 DTS. Per pt report he is from [place]. In [place] he lived with his adoptive family. Pt states, "they don't want me to live there anymore." He told this credit underwriter, "I was driven by a friend to [place] and dropped off." He talked about having lived in motels and now at the [place]. He states, "I am scared living there they take my belongings and have tried to take my EBT card." Pt is developmentally delayed. He reported SI and plans "when I feel scared at the mission." Assessment What has happened this shift: Pt was ambulating in the patel at shift change, occasionally talking with other patients. Pt denies having any complaints and reported that he had a good day. Pt denies being suicidal and reports he has never had hallucinations. All hs meds were taken without issue. S/I, H/I: Denies A/VH: Denies, pt. does not appear to be internally preoccupied Sleep: see sleep assessment ADL's: Pt. has generalized weakness and walks independently with FWW Group attendance: N/A Were meds taken: Yes Any med S/E: None Mental Status Exam Appearance: Neat and appropriately dressed Eye contact: Good Behavior: Cooperative and somewhat restless Speech: Guarded, responds to direct questions with minimal responses. Child-like Mood: Restless Affect: Blunted Thought process: Linear Thought Content: Some perseveration regarding obtaining different items (walker and different foods) Cognition: A&O X2 Insight: Poor Judgment: Poor Interventions PRN's used: None Therapeutic interventions: Maintained a safe and supportive environment, ensured contract for safety, provided clear and simple instructions, provided medication education and encouragement, provided active listening and positive encouragement, encouraged participation on the unit, maintained fall precautions, and maintained Q 15min safety checks. Restraints/seclusion/emergency medication: N/A Justification of Continued Inpatient Treatment: Per. Dr. Solano, pt. continues to require a safe and supportive environment. He will discharge to [facility] or [facility] housing.
[2021-01-25] MEDS: lactose-reduced food (Ensure High Protein) 237ml bottle PO SCH ×5 (03:43→21:00)
[2021-01-25 07:58] VITALS: BP 110/67
[2021-01-25] MEDS: levetiracetam 250mg tablet PO SCH ×2 (08:45→20:29)
--- NOTE | 2021-01-25 09:08 | NUR ---
CM Presenting Issues: Pt has [facility] but does not want to return there. Prior to his admission, pt had transferred his payee services to [employer] and [employer] is now his payee. Pt wants to transfer his MediCal from [place] to [facility] however, pt's also a clt of the [facility] and his MediCal is connected to the [facility] and won't transfer to [facility] until his current funeral service apprentice completes the transfer of his [facility]'s case to [facility]. Plan: SS will assist pt in coordinating the transfer of his MediCal benefits via [facility]. Nara Og LCSW Addendum: 01/25/21 at 0956 by Nara Og Amended: Links added.
--- NOTE | 2021-01-25 14:12 | NUR ---
Pt. attended group today. We talked about how we all look at the world differently due to our core beliefs. These core beliefs then inform thoughts and behaviors. Each pt. identified one negative core belief and then wrote out three truths that contradict their negative beliefs to work on thinking differently. Pt. was in a pleasant mood, he was friendly and open with the group. He appeared to have some difficulty understanding how to figure out what his negative core belief was but a peer helped him and he was able to determine what it was. He also was able to come up with some positive assertions but did not wish to share with the group. He left the group a little bit early. Anastasiia Moody, FREIGHT DELIVERY DRIVER
--- NOTE | 2021-01-25 14:53 | NUR ---
PROBABLE CAUSE HEARING Patients Name: Jaxon Garcia Admission Date: 01/17/2021 Date of 5150: 01/15/21 Written by: [facility] Criteria: DTS Summary of Facts: Will made suicidal statements that if he went back to the mission he would kill himself by walking out in traffic or overdosing on pills if he had them. Previous OD SA Vol from 01/20-01/22 Date of 5250: 01/22/2021 Written by: Deidra Criteria: DTS, GD Summary of Facts: Here for SI w/plan. Has been paranoid of residents at [facility] and would like to leave because he cannot get or his cell phone. He wishes to dc to safe situation which caused him to feel suicidal. Diagnosis: Mood disorder Behavior during past 48 HRS: For the most part cooperative w/staff, takes meds, and social w/peers. Had an episode yesterday where he yelled then apologized to a nurse. Denies SI, HI, AVH. Has denied SI since 01/20 FOOD: 75 SLEEPIN ADLS: ind HALF-WAY: Homeless MEDICATION DOSAGE FREQUENCY DURATION Trazodone 100 mg qt 1999 Invega 6 mg po q hs
--- NOTE | 2021-01-25 17:15 | NUR ---
Nursing Progress Note: Legal hold: 5250 up held today Client on voluntary GD Report received from nurse with use of SBAR: Lien RN Why are they here: Pt admitted from [facility] on a 5150 DTS. Per pt report he is from [place]. In [place] he lived with his adoptive family. Pt states, "they don't want me to live there anymore." He told this appeals writer, "I was driven by a friend to [place] and dropped off." He talked about having lived in motels and now at the [place]. He states, "I am scared living there they take my belongings and have tried to take my EBT card." Pt is developmentally delayed. He reported SI and plans "when I feel scared at the mission." Assessment What has happened this shift: Received pt. sleeping in bed at the beginning of the shift, he was awoken by staff and attend breakfast in the Group Room. Pt. had seizure pads placed on his bed r/t a chronic seizure disorder. He is able to ambulate independently with use of FWW, however requires some encouragement in order to complete ADLs. 1:1 completed later at bedside, pt. denies any S/I, H/I, A/V/SINGH, and no delusional statements made. Pt's thought process is somewhat tangental, and he then switches to talking about somatic complaints. Patient has not had any emeses in a few days. Will maintain a mechanical soft diet at this time, patient is also insistence on getting 4 ensures a day. Patient stated he drinks ensure when he is not here, her orders them from [employer] with his EBT card, because he does not live close to a store, this way it is delivered. (This has not been verified) Patients main concern is that his breaks dont work on his current walker. This appeals writer overheard patient talking on the phone "I know I am shannan like a runaway it was fun". Hearing, " I told them I wanted to stay until they get me a bus ticket to see my mom, Felicita." I think the doctor wants me to stay a few days. "my mom found me on facebook, my friend opened my face book and sent her my phone number here at [facility]" This story has not been confirm with his mom. S/I, H/I: Denies A/VH: Denies, pt. does not appear to be internally preoccupied Sleep: No naps on day shift ADL's: Pt. has generalized weakness and walks independently with FWW, he requires some encouragement with ADL, no shower this shift, although he talks about getting a shower often Group attendance: Yes Were meds taken: Yes Any med S/E: None Mental Status Exam Appearance: Somewhat disheveled, however appropriately dressed Eye contact: Good Behavior: Cooperative, restless, and withdrawn Speech: Soft, minimal responses Mood: Restless Affect: Blunted with animation Thought process: Somewhat tangental Thought Content: Some perseveration on somatic complaints Cognition: A&O X2 Insight: Poor Judgment: Poor Interventions PRN's used: Therapeutic interventions: Introduced self and established rapport, maintained a safe and supportive environment, ensured contract for safety, provided clear and simple instructions, monitored behaviors and provided intervention as necessary, encouraged participation on the unit, maintained fall precautions, and maintained Q 15min safety checks. Restraints/seclusion/emergency medication: N/A Justification of Continued Inpatient Treatment: Per Dr Solano patient is GD, if patient was to discharge today patient would be at risk for re-admission. Although patient states he will go to the [facility] that is the same discharge plan that landed him on a MH hold. Patient needs more time on medication to ensure a safe discharge.
[2021-01-25 19:31] VITALS: BP 127/73
[2021-01-25] MEDS: PALIPERIDONE 3 MG TAB.ER.24 PO SCH (20:29)
[2021-01-25] MEDS: traZODone 50mg tablet PO SCH (20:29)
--- NOTE | 2021-01-25 22:03 | NUR ---
Nursing Progress Note: Legal hold: 5250 up held today Client on voluntary GD Report received from nurse with use of SBAR: Lien RN Why are they here: Pt admitted from [facility] on a 5150 DTS. Per pt report he is from [place]. In [place] he lived with his adoptive family. Pt states, "they don't want me to live there anymore." He told this greeting card writer, "I was driven by a friend to [place] and dropped off." He talked about having lived in motels and now at the [place]. He states, "I am scared living there they take my belongings and have tried to take my EBT card." Pt is developmentally delayed. He reported SI and plans "when I feel scared at the mission." Assessment What has happened this shift: Pt was walking in the hallways with his walker. He is able to ambulate independently w/out the walker but likes to use it. Pt talks about court today and states he wants to stay here until the social workers get him a bus ticket to go see his mother. Pt had snacks in the group room before returning to his room. Pt spent time talking with his roommate before going to sleep. S/I, H/I: Denies A/VH: Denies, pt. does not appear to be internally preoccupied Sleep: see sleep hours ADL's: Pt. has generalized weakness and walks independently with FWW, he requires some encouragement with ADLs Group attendance: no evening groups Were meds taken: Yes Any med S/E: None Mental Status Exam Appearance: Somewhat disheveled, however appropriately dressed Eye contact: Good Behavior: Cooperative, restless, and withdrawn Speech: Soft, minimal responses Mood: euthymic Affect: Blunted with animation Thought process: linear talking about going to see his mom Thought Content: going to see his mom Cognition: A&O X2 Insight: Poor Judgment: Poor Interventions PRN's used: Therapeutic interventions: Introduced self and established rapport, maintained a safe and supportive environment, ensured contract for safety, provided clear and simple instructions, monitored behaviors and provided intervention as necessary, encouraged participation on the unit, maintained fall precautions, and maintained Q 15min safety checks. Restraints/seclusion/emergency medication: N/A Justification of Continued Inpatient Treatment: Per Dr Solano patient is GD, if patient was to discharge today patient would be at risk for re-admission. Although patient states he will go to the [facility] that is the same discharge plan that landed him on a MH hold. Patient needs more time on medication to ensure a safe discharge.
[2021-01-26 07:25] VITALS: BP 109/57
[2021-01-26] MEDS: levetiracetam 250mg tablet PO SCH ×2 (08:47→20:23)
[2021-01-26] MEDS: lactose-reduced food (Ensure High Protein) 237ml bottle PO SCH ×4 (08:48→21:00)
[2021-01-26] MEDS ORDERED: KEP500T PO ×2 (13:46)
[2021-01-26] MEDS ORDERED: TRAZ150T78 PO ×2 (13:46)
[2021-01-26] MEDS ORDERED: PALI6TAB6 PO ×2 (13:49)
[2021-01-26] MEDS ORDERED: [UNRECOGNIZED DRUG - CODE] PO ×4 (14:00→14:01)
--- NOTE | 2021-01-26 15:47 | NUR ---
Nursing Progress Note: Legal hold: 5250 Client on voluntary GD Report received from nurse with use of SBAR: Macy Joaquin RN Why are they here: Pt admitted from [facility] on a 5150 DTS. Per pt report he is from [place]. In [place] he lived with his adoptive family. Pt states, "they don't want me to live there anymore." He told this sba underwriter, "I was driven by a friend to [place] and dropped off." He talked about having lived in motels and now at the [place]. He states, "I am scared living there they take my belongings and have tried to take my EBT card." Pt is developmentally delayed. He reported SI and plans "when I feel scared at the mission." Assessment What has happened this shift: Received pt. sleeping in bed at the beginning of the shift, he was awoken by staff and required some encouragement in order to attend breakfast in the Group Room. Pt. has seizure pads placed on his bed r/t a chronic seizure disorder. (none noted while at [facility]) He is able to ambulate independently with use of FWW, however requires some encouragement in order to complete ADLs. 1:1 completed later at bedside, pt. denies any S/I, H/I, A/V/SINGH, and no delusional statements made. Pt's thought process is somewhat tangental, and he then switches to talking about somatic complaints including he continues to throw up after meals, however this was reported to Dr. Solano who indicates this is a chronic issue for pt, there was one small emesis today, unwitnessed. Will maintain a mechanical soft diet at this time, patient is also insistence on getting 4 ensures a day. Patient spent a good part of the day on the phone and pacing the patel. Patient is happy that [facility] is getting him a train ticket and helping him get to his mothers place. S/I, H/I: Denies A/VH: Denies, pt. does not appear to be internally preoccupied Sleep: No naps on day shift ADL's: Pt. has generalized weakness and walks independently with FWW, he requires some encouragement with ADL, no shower this shift, although he talks about getting a shower often Group attendance: Yes Were meds taken: Yes Any med S/E: None Mental Status Exam Appearance: Somewhat disheveled, however appropriately dressed Eye contact: Good Behavior: Cooperative, restless, and withdrawn Speech: Soft, minimal responses Mood: Restless Affect: Blunted with animation Thought process: Somewhat tangental Thought Content: Some perseveration on somatic complaints Cognition: A&O X2 Insight: Poor Judgment: Poor Interventions PRN's used: Therapeutic interventions: Introduced self and established rapport, maintained a safe and supportive environment, ensured contract for safety, provided clear and simple instructions, monitored behaviors and provided intervention as necessary, encouraged participation on the unit, maintained fall precautions, and maintained Q 15min safety checks. Restraints/seclusion/emergency medication: N/A Justification of Continued Inpatient Treatment: Per Dr Solano patient is GD, if patient was to discharge today patient would be at risk for re-admission. Today's plan is for patient is to discharge monday via [facility].
[2021-01-26 19:06] VITALS: BP 118/68
[2021-01-26] MEDS: PALIPERIDONE 3 MG TAB.ER.24 PO SCH (20:23)
[2021-01-26] MEDS: traZODone 50mg tablet PO SCH (20:23)
--- NOTE | 2021-01-26 21:39 | NUR ---
Nursing Progress Note: Legal hold: 5250 Client on voluntary GD Report received from nurse with use of SBAR: DIANA Rivera Why are they here: Pt admitted from [facility] on a 5150 DTS. Per pt report he is from [place]. In [place] he lived with his adoptive family. Pt states, "they don't want me to live there anymore." He told this financial writer, "I was driven by a friend to [place] and dropped off." He talked about having lived in motels and now at the [place]. He states, "I am scared living there they take my belongings and have tried to take my EBT card." Pt is developmentally delayed. He reported SI and plans "when I feel scared at the mission." Assessment What has happened this shift: Pt was in his room on the phone tonight at change of shift. Pt isolates to his room most of the night and seems somewhat irritable. Pt yells at another patient "Stop asking me questions!" Pt is interested in knowing how late he can get phone calls and talking on the phone with various friends. Pt did not have an evening ensure available but accepted a yogurt instead at evening snack. S/I, H/I: Denies A/VH: Denies, pt. does not appear to be internally preoccupied Sleep: see sleep hours ADL's: Pt. has generalized weakness and walks independently with FWW, he requires some encouragement with ADL, no shower this shift, although he talks about getting a shower often Group attendance: Yes Were meds taken: Yes Any med S/E: None Mental Status Exam Appearance: Somewhat disheveled, however appropriately dressed Eye contact: Good Behavior: Cooperative, restless, and withdrawn Speech: Soft, minimal responses Mood: Restless Affect: Blunted with animation Thought process: Somewhat tangental Thought Content: Some perseveration on somatic complaints Cognition: A&O X2 Insight: Poor Judgment: Poor Interventions PRN's used: Therapeutic interventions: Introduced self and established rapport, maintained a safe and supportive environment, ensured contract for safety, provided clear and simple instructions, monitored behaviors and provided intervention as necessary, encouraged participation on the unit, maintained fall precautions, and maintained Q 15min safety checks. Restraints/seclusion/emergency medication: N/A Justification of Continued Inpatient Treatment: Per Dr Solano patient is GD, if patient was to discharge today patient would be at risk for re-admission. Today's plan is for patient is to discharge monday via [facility].
[2021-01-27] MEDS: levetiracetam 250mg tablet PO SCH (07:17)
[2021-01-27 08:00] VITALS: BP 107/61
[2021-01-27] MEDS: lactose-reduced food (Ensure High Protein) 237ml bottle PO SCH ×2 (08:08→12:50)
--- NOTE | 2021-01-27 14:00 | NUR ---
[facility] Pt agreed to d/c to the mission and wait for his mother to pick him up from there. Pt will need a cab ride to the [place] when d/c. Nara Og LCSW Addendum: 01/27/21 at 1402 by Nara Og SS Amended: Links added.
--- NOTE | 2021-01-27 15:49 | NUR ---
Nursing Progress Note: Legal hold: 5250 Client on voluntary DTS Report received from nurse with use of SBAR: Grace RN Why are they here: Pt admitted from [facility] on a 5150 DTS. Per pt report he is from [place]. In [place] he lived with his adoptive family. Pt states, "they don't want me to live there anymore." He told this senior grant writer, "I was driven by a friend to [place] and dropped off." He talked about having lived in motels and now at the [place]. He states, "I am scared living there they take my belongings and have tried to take my EBT card." Pt is developmentally delayed. He reported SI and plans "when I feel scared at the mission." Assessment What has happened this shift: Received pt. sleeping in bed at the beginning of the shift, he awoke and requested his AM medication before attending breakfast in the Group Room. Pt. continues to ambulate independently with use of FWW, and fall precautions remain in place. 1:1 completed later at bedside, pt. continues to deny any S/I, H/I, A/V/SINGH, and no delusional statements made. He continues to present with a somewhat blunted affect, but animates with continued conversation. Pt. states, "I might get out of here today!" He goes on to report that he will stay either at the [facility] or the doctor will set him up with housing, and he will await the arrival of his mother from [place] who will be taking him back with her. Pt. remains up throughout the day, and he is observed to be interacting appropriately with others and talking on the telephone at intervals. Per precautions, seizure pads remain in place on his bed. [facility] will be delivering pt's medications prior to his discharge. S/I, H/I: Denies A/VH: Denies, pt. does not appear to be internally preoccupied Sleep: Pt. reported he slept well last night ADL's: Pt. has generalized weakness and walks independently with FWW Group attendance: No Were meds taken: Yes Any med S/E: None Mental Status Exam Appearance: Neat and appropriately dressed Eye contact: Good Behavior: Cooperative and somewhat restless Speech: Guarded, responds to direct questions with minimal responses. Child-like Mood: Restless Affect: Blunted with animation Thought process: Linear Thought Content: Perseveration with desire to discharge Cognition: A&O X4 Insight: Fair Judgment: Fair Interventions PRN's used: None Therapeutic interventions: Maintained a safe and supportive environment, ensured contract for safety, provided clear and simple instructions, provided medication education and encouragement, provided active listening and positive encouragement, encouraged participation on the unit, maintained fall precautions, and maintained Q 15min safety checks. Restraints/seclusion/emergency medication: N/A Justification of Continued Inpatient Treatment: Per. Dr. Solano, pt. will discharge today to the [facility], and will await his mother's visit from [place] (who will be taking him back with her).
--- NOTE | 2021-01-27 16:40 | NUR ---
Discharge Note: Pt. discharged off the unit accompanied by staff and security to [employer] cab which will be taking him to the [facility]. Belongings were reviewed and returned to pt. by tech. This junior copywriter reviewed medications and discharge instructions with pt. and he reported understanding. Pt. was sent with his medications. No nicotine replacement required. Pt. is able to contract for safety.
[2021-01-28] MEDS ORDERED: PALI6TAB6 PO (20:11)
[2021-01-28] MEDS ORDERED: TRAZ150T78 PO (20:11)
[2021-01-28] MEDS ORDERED: KEP500T PO (20:11)
[2021-01-28] MEDS ORDERED: LORA-269 PO (20:11)
== END 2021-01-27 17:30 | disposition home or self-care (01) | DRG 885 ==
LOC: ER 19:10 → ED HOLD 01-17 11:05 → ADULT MH 01-17 13:20
PROVIDERS: ADMIT Psychiatry & Neurology Psychiatry; ATTEND Psychiatry & Neurology Psychiatry
DX: F39 Unspecified mood [affective] disorder (principal); F63.81 Intermittent explosive disorder; R45.851 Suicidal ideations; F29 Unspecified psychosis not due to a substance or known physiological condition; Z20.822 Contact with and (suspected) exposure to COVID-19; F41.9 Anxiety disorder, unspecified; F25.9 Schizoaffective disorder, unspecified; G89.29 Other chronic pain; F31.9 Bipolar disorder, unspecified; G40.909 Epilepsy, unspecified, not intractable, without status epilepticus; Z88.0 Allergy status to penicillin; Z88.8 Allergy status to other drugs, medicaments and biological substances; Z79.899 Other long term (current) drug therapy; Z59.0 Homelessness
CPT/HCPCS: 36415; 80053; 80061; 80305; 81001; 83036; 84443; 85025; 87081; 87635; 99285; C9803

== ENCOUNTER 2021-01-28 17:59 | Emergency (ER) | payer MEDICARE, MEDICAID ==
[~2021-01-28] VITALS: Ht 152.4 cm; Wt 63.3 kg
[~2021-01-28 17:59] MED LIST changes: -CITA-311 PO; -OLAN5TAB5 PO; +PALI6TAB6 PO; +TRAZ150T78 PO; +[UNRECOGNIZED DRUG - CODE] PO
[2021-01-28 19:36] LABS: BASOPHILS # (AUTO) 0.1 X10'3 (0-0.2); BASOPHILS % (AUTO) 0.9 % (0-1); EOSINOPHILS # (AUTO) 0.1 X10'3 (0-0.9); EOSINOPHILS % (AUTO) 0.7 % (0-6); HEMATOCRIT 51.1 % (42.0-52.0); HEMOGLOBIN 17.5 g/dl (14.0-17.9); LYMPHOCYTES # (AUTO) 1.3 X10'3 (1.1-4.8); LYMPHOCYTES % (AUTO) 10.7 % (21-51); MEAN CORPUSCULAR HEMOGLOBIN 31.9 PG (27.0-31.0); MEAN CORPUSCULAR HGB CONC 34.3 g/dL (33.0-36.5); MEAN CORPUSCULAR VOLUME 93.1 FL (78-98); MONOCYTES # (AUTO) 1.4 X10'3 (0-0.9); NEUTROPHILS # (AUTO) 9.6 X10'3 (1.8-7.7); NEUTROPHILS % (AUTO) 76.7 % (42-75); PLATELET COUNT 290 X10'3 (140-440); RED BLOOD COUNT 5.49 X10'6 (4.70-6.10); WHITE BLOOD COUNT 12.6 X10'3 (4.5-11.0)
[2021-01-28 19:45] LABS: ALANINE AMINOTRANSFERASE 40 U/L (12-78); ALBUMIN 3.9 G/DL (3.4-5.0); ALKALINE PHOSPHATASE 100 IU/L (46-116); ANION GAP 6 (8-16); ASPARTATE AMINO TRANSFERASE 17 U/L (10-37); BILIRUBIN,TOTAL 1.1 MG/DL (0.1-1.0); BLOOD UREA NITROGEN 9 MG/DL (7-18); BUN/CREATININE RATIO 10.3 (5.4-32.0); CHLORIDE 104 MMOL/L (99-107); CREATININE 0.87 MG/DL (0.60-1.10); ETHANOL < 0.010 GM/DL (0.0-0.010); GLUCOSE 120 MG/DL (70-104); POTASSIUM 3.4 MMOL/L (3.5-5.1); SODIUM 136 MMOL/L (135-145); TOTAL CARBON DIOXIDE 26.4 MMOL/L (24-32); TOTAL PROTEIN 7.8 G/DL (6.4-8.2); eGFR > 90 ML/MIN
[2021-01-28 19:54] LABS: CLARITY,URINE CLEAR (Clear); COLOR,URINE YELLOW (Yellow); GLUCOSE, URINE NEGATIVE (Neg); KETONES,URINE NEGATIVE (Neg); LEUKOCYTE ESTERASE ,URINE NEGATIVE (Neg); NITRITES, URINE NEGATIVE (Neg); OCCULT BLOOD,URINE NEGATIVE (Neg); PH,URINE 6.5 (4.8-8.0); PROTEIN,URINE NEGATIVE (Neg); UA COLLECTION TYPE URINAL
[2021-01-28 20:01] LABS: URINE AMPHETAMINE SCREEN NEGATIVE (Neg); URINE BARBITUATE SCREEN NEGATIVE (Neg); URINE BENZODIAZEPINES SCREEN NEGATIVE (Neg); URINE CANNABINOID SCREEN NEGATIVE (Neg); URINE COCAINE SCREEN NEGATIVE (Neg); URINE METHADONE SCREEN NEGATIVE (Neg); URINE OPIATE SCREEN NEGATIVE (Neg); URINE PHENCYCLIDINE SCREEN NEGATIVE (Neg)
[2021-01-28] MEDS ORDERED: PALI6TAB6 PO (20:11)
[2021-01-28] MEDS ORDERED: TRAZ150T78 PO (20:11)
[2021-01-28] MEDS ORDERED: LORA-269 PO (20:11)
[2021-01-28] MEDS ORDERED: KEP500T PO (20:11)
[2021-01-28] MEDS ORDERED: LORazepam 0.5 MG tablet PO PRN (20:20)
--- NOTE | 2021-01-28 20:38 | NUR ---
The patient was moved to bed 26 from the main ER. He was very cooperative with the move. He was on the phone with his mother, who lives out of state, earlier in the day when he had her call [facility] crisis services who then brought him to the ER. [facility] stated that [facility]. He was discharged from [facility] yesterday. He now reports he is suicidal and hearing voices but when asked specifics he stated that he couldn't remember.
[2021-01-28] MEDS: levetiracetam 250mg tablet PO SCH (20:45)
[2021-01-28] MEDS ORDERED: PALIPERIDONE 3 MG TAB.ER.24 PO SCH (21:00)
[2021-01-28] MEDS ORDERED: traZODone 150mg tablet PO SCH (21:00)
--- NOTE | 2021-01-28 21:54 | NUR ---
The patient appears to be sleeping
--- NOTE | 2021-01-28 22:00 | NUR ---
Packet sent to [facility]
--- NOTE | 2021-01-28 23:47 | NUR ---
THe patient appears to be sleeping
--- NOTE | 2021-01-29 02:18 | NUR ---
The patient appears to be sleeping
--- NOTE | 2021-01-29 04:16 | NUR ---
The patient appears to be sleeping
[2021-01-29 05:49] VITALS: BP 107/69
--- NOTE | 2021-01-29 06:25 | NUR ---
Patient sleeping on his left side. No distress observed. Continue to monitor.
[2021-01-29] MEDS: levetiracetam 250mg tablet PO SCH (08:00)
[2021-01-29] MEDS ORDERED: levetiracetam 250mg tablet PO SCH (08:00)
--- NOTE | 2021-01-29 08:10 | NUR ---
Patient states he can't eat his meal. No distress observed. Continue to monitor.
--- NOTE | 2021-01-29 10:01 | NUR ---
[facility], [facility] [place], evaluating patient. Continue to monitor.
[2021-01-29] MEDS ORDERED: lactose-reduced food (Ensure High Protein) 237ml bottle PO SCH (11:00)
--- NOTE | 2021-01-29 11:24 | NUR ---
spoke to dr. boudreaux, reg diet changed to ensure diet pt reports he didn't eat breakfast, vomits food. pt to get rx for home.
--- NOTE | 2021-01-29 13:05 | NUR ---
Patient given a soda and a Ensure. Patient in no distress. Continue to monitor.
--- NOTE | 2021-01-29 13:55 | NUR ---
Patient got a "bed pass" from Dr Whiting for [facility]. No distress observed. Continue to monitor.
== END 2021-01-29 14:44 | disposition home or self-care (01) ==
LOC: ER 18:00
DX: R45.851 Suicidal ideations (principal); Z20.822 Contact with and (suspected) exposure to COVID-19; F20.9 Schizophrenia, unspecified; F41.9 Anxiety disorder, unspecified; F32.9 Major depressive disorder, single episode, unspecified; Z98.890 Other specified postprocedural states; Z88.0 Allergy status to penicillin; Z88.8 Allergy status to other drugs, medicaments and biological substances; Z79.899 Other long term (current) drug therapy
CPT/HCPCS: 36415; 80053; 80305; 80320; 81003; 85025; 87635; 99285; C9803

== ENCOUNTER 2021-01-31 22:40 | Emergency (ER) | payer MEDICARE, MEDICAID ==
[~2021-01-31] VITALS: Ht 152.4 cm; Wt 56.8 kg
[~2021-01-31 22:40] MED LIST changes: +LORA-269 PO; -LORA0.5T PO; -[UNRECOGNIZED DRUG - CODE] PO
[2021-01-31 22:45] VITALS: BP 108/72
--- NOTE | 2021-02-01 01:14 | NUR ---
[facility], SPOKE TO ELIZABETH THEY WILL ALLOW THE PT BACK [facility].
== END 2021-02-01 02:24 | disposition home or self-care (01) ==
LOC: ER 22:40
DX: F41.9 Anxiety disorder, unspecified (principal); G40.909 Epilepsy, unspecified, not intractable, without status epilepticus; F32.9 Major depressive disorder, single episode, unspecified; Z88.0 Allergy status to penicillin; Z88.8 Allergy status to other drugs, medicaments and biological substances; Z59.0 Homelessness
CPT/HCPCS: 99283

== ENCOUNTER 2021-02-07 21:13 | Emergency (ER) | payer MEDICARE, MEDICAID ==
[~2021-02-07] VITALS: Ht 152.4 cm; Wt 55.0 kg
[2021-02-07 21:35] VITALS: BP 118/74
[2021-02-07] MEDS ORDERED: levetiracetam 250mg tablet PO ONE (22:05)
[2021-02-07] MEDS ORDERED: PALIPERIDONE 3 MG TAB.ER.24 PO ONE (22:05)
[2021-02-07] MEDS ORDERED: traZODone 50mg tablet PO SCH (22:05)
[2021-02-07] MEDS ORDERED: traZODone 50mg tablet PO ONE (22:05)
== END 2021-02-07 23:06 | disposition home or self-care (01) ==
LOC: ER 21:13
DX: R63.8 Other symptoms and signs concerning food and fluid intake (principal); Z88.8 Allergy status to other drugs, medicaments and biological substances; Z79.899 Other long term (current) drug therapy; Z98.890 Other specified postprocedural states
CPT/HCPCS: 99284

== ENCOUNTER 2021-03-11 18:19 | Emergency (ER) | payer MEDICARE, MEDICAID ==
[~2021-03-11] VITALS: Ht 152.4 cm; Wt 59.1 kg
[2021-03-11 18:30] VITALS: BP 111/74
[2021-03-11] MEDS ORDERED: PERM60CR19 TP (18:30)
== END 2021-03-11 19:07 | disposition home or self-care (01) ==
LOC: ER 18:20
DX: R62.50 Unspecified lack of expected normal physiological development in childhood (principal); F41.9 Anxiety disorder, unspecified; F32.9 Major depressive disorder, single episode, unspecified; Z86.69 Personal history of other diseases of the nervous system and sense organs; Z98.890 Other specified postprocedural states; Z88.0 Allergy status to penicillin; Z88.8 Allergy status to other drugs, medicaments and biological substances; Z79.899 Other long term (current) drug therapy
CPT/HCPCS: 99283